=== PATIENT | male | born 1975 | race Caucasian/White ===

== ENCOUNTER 2017-02-27 14:55 | Emergency (ER) | payer BC, OTHER ==
[2017-02-27 14:58] VITALS: BMI 29.2
--- NOTE | 2017-02-27 15:08 | PDOC ---
[id number] No Limitations <May Burdick - Last Filed: 02/27/17 17:53> <Marcos Luna - Last Filed: 03/03/17 10:14> - General Chief Complaint: Chest Pain Stated Complaint: CHEST PAIN Time Seen by Provider: 02/27/17 15:02 - History of Present Illness Initial Comments: CHIEF COMPLAINT: 41 y/o afebrile male with bipolar disorder (on risperdone), untreated HTN, untreated HLD and untreated DM c/o left sided chest pain and right arm weakness since this morning. HISTORY OF PRESENT ILLNESS: The patient admits he has been drinking alcohol and smoking weed "constantly" for the past 4 days and has smoked and drank alcohol today. He describes the chest pain as someone intermittently punching him in the chest. He states his right arm feels "heavy". He denies RAE, syncope , changes in vision/hearing, f/c, n/v/d, cough, hemoptysis, SOB, abd pain, back pain. The patient was very recently released from a psychiatric facility for suicidal ideations and hearing voices. He states he no longer has suicidal ideations. He is currently taking medication for his psych issues. He feels even though he still hears voices and occassionally wants to hurt people he is in control of his emotions and does not currently want to hurt himself or others. Vital signs on arrival are notable for pulse of 104. REVIEW OF SYSTEMS: GENERAL/CONSTITUTIONAL: No fever/chills. No weakness. No weight change. HEAD, EYES, EARS, NOSE AND THROAT: No change in vision. No ear pain or discharge. No sore throat. CARDIOVASCULAR: +left sided chest pain. No shortness of breath. RESPIRATORY: No cough, wheezing, or hemoptysis. GASTROINTESTINAL: No abd pain, nausea, vomiting, diarrhea. GENITOURINARY: No dysuria, frequency, or change in urination. MUSCULOSKELETAL: +right arm weakness. No neck or back pain. SKIN: No rash or easy bruising. NEUROLOGIC: No headache, vertigo, loss of consciousness, or loss of sensation. PHYSICAL EXAM: GENERAL: The patient is awake, alert, and fully oriented, in no acute distress. He is ambulatory, smells of alcohol. HEAD: Normal with no signs of trauma. ENT: Pupils equal, round and reactive to light, extraocular movements intact, sclera anicteric, conjunctiva clear. Mucous membranes mildly dry and lips dry. LUNGS: Clear to auscultation bilaterally. Normal excursion. No respiratory distress or use of accessory muscles. CV: Rapid rate/regular rhythm, S1/S2, no MRG. Cap refill < 2 sec. ABDOMEN: Soft, non-distended, non-tender even to deep palpation, no hepatomegaly or splenomegaly, no masses. EXTREMITIES: Normal range of motion, no edema. Motor and sensory intact in b/l UEs. No TTP of right AC joint. No tenting or deformities of right clavicle. NEUROLOGICAL: Normal speech, normal gait. CN II-XII grossly intact. PSYCH: Normal mood, normal affect. SKIN: Warm, dry, normal turgor, no rashes or lesions noted. (May Burdick) Past History - Past Medical History Psychiatric Problems: Yes - Psycho/Social/Smoking Cessation Hx Anxiety: No Suicidal Ideation: No Smoking History: Current every day smoker Number of Cigarettes Smoked Daily: 0 Cigars Per Day: 2 Information on smoking cessation initiated: No Hx Alcohol Use: Yes (gabriel daily) Drug/Substance Use Hx: Yes (marijuana) Substance Use Type: Alcohol, Marijuana <May Burdick - Last Filed: 02/27/17 17:53> <Marcos Luna - Last Filed: 03/03/17 10:14> - Past Medical History Allergies/Adverse Reactions: Allergies Allergy/AdvReac Type Severity Reaction Status Date / Time No Known Allergies Allergy Verified 02/27/17 14:56 Home Medications: Ambulatory Orders Risperidone [Risperdal] 0 mg PO BID 02/27/17 - Vital Signs Last Vital Signs Temp Pulse Resp BP Pulse Ox 98.7 F 89 17 137/89 98 02/27/17 19:00 02/27/17 19:00 02/27/17 19:00 02/27/17 19:00 02/27/17 19:00 Heart Score/ECG Review <May Burdick - Last Filed: 02/27/17 17:53> <Marcos Luna - Last Filed: 03/03/17 10:14> - ECG Intrepretation Comment:: Twelve-lead EKG was performed and reviewed by Dr. Luna. There is sinus tachycardia with HR of 102bpm. The axis is normal. The intervals are normal. There are no ST or T wave abnormalities. Impression: Normal twelve-lead EKG (May Burdick) ED Treatment Course - LABORATORY CBC & Chemistry Diagram: 02/27/17 15:38 02/27/17 15:38 <May Burdick - Last Filed: 02/27/17 17:53> - LABORATORY CBC & Chemistry Diagram: 02/27/17 15:38 02/27/17 15:38 <Marcos Luna - Last Filed: 03/03/17 10:14> - ADDITIONAL ORDERS Additional order review: 02/27/17 15:38 RBC 5.07 MCV 88.0 MCHC 33.6 RDW 14.1 MPV 7.6 Neutrophils % 32.0 L Lymphocytes % 55.0 H Monocytes % 5.0 Eosinophils % 5.0 H - Medications Given in the ED: ED Medications Discontinued Medications Generic Name Dose Route Start Last Admin Trade Name Quentin PRN Reason Stop Dose Admin Acetaminophen 1,000 mg 02/27/17 18:30 02/27/17 18:36 Ofirmev Injection - IVPB 02/27/17 18:31 1,000 mg ONCE ONE Administration Sodium Chloride 1,000 mls @ 1,000 mls/hr 02/27/17 15:15 02/27/17 15:31 Normal Saline - IV 02/27/17 16:14 1,000 mls/hr ASDIR STA Administration Ketorolac Tromethamine 30 mg 02/27/17 17:17 02/27/17 17:26 Toradol Injection - IVPUSH 02/27/17 17:18 30 mg ONCE ONE Administration Medical Decision Making <May Burdick - Last Filed: 02/27/17 17:53> <Marcos Luna - Last Filed: 03/03/17 10:14> - Medical Decision Making A/P: 41 y/o male on a 4 day alcohol and weed binge c/o chest pain and right arm weakness that started this morning. Plan is as follows: 1. EKG 2. CXR 3. Labs 4. IV fluids EKG - sinus tachycardia with HR of 102 CXR IMPRESSION: No acute chest process Right shoulder xray IMPRESSION: No acute radiographic abnormality. CK = 506; all other labs unremarkable Pt given Toradol for shoulder pain. The patient was given all results. Will run second troponin at 7pm. Will provide the patient with a sling. I am signing this patient out to my colleague: FESTUS Dias In brief, this patient is being seen in the ED for a chief complaint of: chest pain I have completed the initial assessment interview note and have ordered: labs, ekg, cxr, shoulder xray I have reviewed the following results: all Pending results are: 2nd troponing to be drawn at 7pm Plan for disposition is as follows: Pending (May Burdick) 03/03/17 10:14 The patient was seen and evaluated in conjunction with BENTON Burdick under my direct supervision, ancillary studies were reviewed.I agree with the plan as outlined by BENTON Burdick . (Marcos Luna) *DC/Admit/Observation/Transfer <May Burdick - Last Filed: 02/27/17 17:53> <Marcos Luna - Last Filed: 03/03/17 10:14> Diagnosis at time of Disposition: Chest pain Qualifiers: Chest pain type: unspecified Qualified Code(s): R07.9 - Chest pain, unspecified Shoulder pain, right Qualifiers: Chronicity: acute Qualified Code(s): M25.511 - Pain in right shoulder - Discharge Dispostion Disposition: AGAINST MEDICAL ADVICE Condition at time of disposition: Good - Referrals Referrals: Chao Lentz MD [Staff Physician] - Call tomorrow Jonas Javier MD [Staff Physician] - Call tomorrow Bradley Smith MD [Staff Physician] - Call tomorrow - Patient Instructions Printed Discharge Instructions: DI for Atypical Chest Pain, DI for Chest Pain, DI for Shoulder Pain, How To Perform RICE (Rest, Ice, Compress, Elevate) Additional Instructions: Discharge Instructions: -Take 600mg of Ibuprofen every 6 hours with food for shoulder pain -Follow RICE instructions -use sling as needed for comfort -Follow up with your doctor this week -Return to the ER immediately with any worsening or concerning symptoms.
[2017-02-27] MEDS ORDERED: SODIUM CHLORIDE 1,000 ML IV STA (15:15)
[2017-02-27 15:41] LABS: MCH 29.5 pg (25.7-33.7); MCHC 33.6 g/dl (32.0-35.9); MEAN PLT VOLUME 7.6 fl (7.5-11.1); PLATELET COUNT 301 K/MM3 (134-434); RDW 14.1 % (11.9-15.9); WHITE BLOOD COUNT 8.2 K/mm3 (4.0-10.0)
[2017-02-27 16:07] LABS: ALBUMIN 4.3 g/dl (3.4-5.0); ANION GAP 10 (8-16); BILIRUBIN,TOTAL 0.2 mg/dL (0.2-1.0); CALCIUM 9.2 mg/dL (8.5-10.1); CO2 29 mmol/L (21-32); COCKROFT - GAULT 132.29; GLUCOSE,RANDOM 88 mg/dL (74-106); SGOT/AST 27 U/L (15-37); SGPT/ALT 29 U/L (12-78); TOT PROT 7.8 g/dl (6.4-8.2)
[2017-02-27 16:09] LABS: ALK PHOS 74 U/L (45-117); TROPONIN I < 0.02 ng/ml (0.00-0.05)
[2017-02-27 16:15] LABS: PLATELET ESTIMATE ADEQUATE (NORMAL)
[2017-02-27] MEDS ORDERED: KETOROLAC TROMETHAMINE 30 MG/1 ML VIAL IVPUSH ONE (17:17)
[2017-02-27] MEDS ORDERED: KETOROLAC TROMETHAMINE 30 MG/1 ML VIAL ONE (17:22)
[2017-02-27] MEDS ORDERED: ACETAMINOPHEN 1000 MG/100 ML VIAL (NON FORMULARY) IVPB ONE (18:30)
[2017-02-27] MEDS ORDERED: ACETAMINOPHEN INJECTION 100 ML IVPB ONE (18:31)
--- NOTE | 2017-02-27 19:28 | PDOC ---
*Physical Exam - Vital Signs Last Vital Signs Temp Pulse Resp BP Pulse Ox 98.5 F 85 18 124/84 98 02/27/17 17:07 02/27/17 17:07 02/27/17 17:07 02/27/17 17:07 02/27/17 17:07 ED Treatment Course - LABORATORY CBC & Chemistry Diagram: 02/27/17 15:38 02/27/17 15:38 - ADDITIONAL ORDERS Additional order review: Laboratory Results 02/27/17 02/27/17 15:38 15:38 Sodium 143 Potassium 4.2 Chloride 104 Carbon Dioxide 29 Anion Gap 10 BUN 11 Creatinine 1.0 Creat Clearance w eGFR > 60 Random Glucose 88 Calcium 9.2 Total Bilirubin 0.2 AST 27 ALT 29 Alkaline Phosphatase 74 Creatine Kinase 506 H Creatine Kinase Index 0.4 CK-MB (CK-2) 1.796 CK-MB (CK-2) Rel Index Cancelled Troponin I < 0.02 Total Protein 7.8 Albumin 4.3 02/27/17 15:38 RBC 5.07 MCV 88.0 MCHC 33.6 RDW 14.1 MPV 7.6 Neutrophils % 32.0 L Lymphocytes % 55.0 H Monocytes % 5.0 Eosinophils % 5.0 H - Medications Given in the ED: ED Medications Discontinued Medications Generic Name Dose Route Start Last Admin Trade Name Quentin PRN Reason Stop Dose Admin Acetaminophen 1,000 mg 02/27/17 18:30 02/27/17 18:36 Ofirmev Injection - IVPB 02/27/17 18:31 1,000 mg ONCE ONE Administration Sodium Chloride 1,000 mls @ 1,000 mls/hr 02/27/17 15:15 02/27/17 15:31 Normal Saline - IV 02/27/17 16:14 1,000 mls/hr ASDIR STA Administration Ketorolac Tromethamine 30 mg 02/27/17 17:17 02/27/17 17:26 Toradol Injection - IVPUSH 02/27/17 17:18 30 mg ONCE ONE Administration Medical Decision Making - Medical Decision Making 02/27/17 19:16 Received patient at 7pm to check 2nd set of trop and cpk. [facility] States he has to get his son. We have given him all his lab work up so he can follow up. *DC/Admit/Observation/Transfer Diagnosis at time of Disposition: Shoulder pain, right Qualifiers: Chronicity: acute Qualified Code(s): M25.511 - Pain in right shoulder Chest pain Qualifiers: Chest pain type: unspecified Qualified Code(s): R07.9 - Chest pain, unspecified - Discharge Dispostion Disposition: AGAINST MEDICAL ADVICE Condition at time of disposition: Good - Referrals Referrals: Bradley Smith MD [Staff Physician] - Call tomorrow Chao Lentz MD [Staff Physician] - Call tomorrow Jonas Javier MD [Staff Physician] - Call tomorrow - Patient Instructions Printed Discharge Instructions: DI for Atypical Chest Pain, How To Perform RICE (Rest, Ice, Compress, Elevate), DI for Shoulder Pain, DI for Chest Pain Additional Instructions: Discharge Instructions: -Take 600mg of Ibuprofen every 6 hours with food for shoulder pain -Follow RICE instructions -use sling as needed for comfort -Follow up with your doctor this week -Return to the ER immediately with any worsening or concerning symptoms. - Post Discharge Activity
[2017-02-27 19:47] VITALS: BP 137/89; PULSE 89; TEMP 98.7
--- NOTE | 2017-02-28 11:08 | EKG ---
Test Reason : Blood Pressure : / mmHG Vent. Rate : 102 BPM Atrial Rate : 102 BPM P-R Int : 180 ms QRS Dur : 086 ms QT Int : 322 ms P-R-T Axes : 042 -21 024 degrees QTc Int : 419 ms SINUS TACHYCARDIA MINIMAL VOLTAGE CRITERIA FOR LVH, MAY BE NORMAL VARIANT BORDERLINE ECG NO PREVIOUS ECGS AVAILABLE Confirmed by STEPHANE BENSON MD ([id number]) on 02/28/2017 11:07:58 AM Referred By: Confirmed By:STEPHANE BENSON MD
== END 2017-02-27 19:30 | disposition left against medical advice (07) ==
LOC: JER 14:55
PROC: 3E0337Z Introduction of Electrolytic and Water Balance Substance into Peripheral Vein, Percutaneous Approach (ICD-10-PCS; principal; 2017-02-27)
PROC: 3E033NZ Introduction of Analgesics, Hypnotics, Sedatives into Peripheral Vein, Percutaneous Approach (ICD-10-PCS; 2017-02-27)
PROC: 3E0333Z Introduction of Anti-inflammatory into Peripheral Vein, Percutaneous Approach (ICD-10-PCS; 2017-02-27)
DX: R07.89 Other chest pain (principal); F10.10 Alcohol abuse, uncomplicated; F12.10 Cannabis abuse, uncomplicated; F17.210 Nicotine dependence, cigarettes, uncomplicated; I10 Essential (primary) hypertension; E11.9 Type 2 diabetes mellitus without complications; E78.00 Pure hypercholesterolemia, unspecified
CPT/HCPCS: 36415; 71020-TC; 73030-TC-RT; 80053; 82550; 82553; 84484; 85025; 93005; 93010; 99284-25